=== PATIENT | male | born 1975 | race Caucasian/White ===

== ENCOUNTER 2023-04-04 17:49 | Emergency (ER) | payer OTHER, BC ==
[~2023-04-04] VITALS: Ht 170.2 cm; Wt 99.8 kg
[2023-04-04 17:59] VITALS: BP_SYST 159; PULSE 91; RESP 22; TEMP 98.3; O2SAT 97
[2023-04-04] MEDS ORDERED: METH-634 PO (18:50)
[2023-04-04] MEDS ORDERED: IBUP-1969 PO (18:50)
[2023-04-04 19:01] VITALS: BP_SYST 159; PULSE 91; RESP 22; TEMP 98.3; O2SAT 97
== END 2023-04-04 19:01 | disposition home or self-care (01) ==
LOC: SED 17:49
DX: S16.1XXA Strain of muscle, fascia and tendon at neck level, initial encounter (principal); S09.90XA Unspecified injury of head, initial encounter; V49.49XA Driver injured in collision with other motor vehicles in traffic accident, initial encounter; Y93.89 Activity, other specified; Y92.89 Other specified places as the place of occurrence of the external cause; Y99.8 Other external cause status
CPT/HCPCS: 70450-TC; 72125-TC; 76376; 99284